=== PATIENT | male | born 1965 | race Caucasian/White ===

== ENCOUNTER 2016-09-08 22:27 | Emergency (ER) | payer OTHER ==
[~2016-09-08] VITALS: Ht 177.8 cm; Wt 102.2 kg
[~2016-09-08 22:27] MED LIST: CETI10CA PO; EPP3/2 IM; IBUP-103 PO; LAMO100T16 PO; MULT1CAP17 PO
[2016-09-08 22:48] VITALS: Ht 177.8 cm; Wt 102.2 kg
[2016-09-08] MEDS ORDERED: DIAZEPAM 5MG TAB PO STA (23:14)
--- NOTE | 2016-09-08 23:25 | EMERGENCY ROOM VISIT NOTE ---
History Report prepared by Munira: Nicola Calabrese Under the Supervision of: Dr. Mathieu Patel M.D. First contact with patient: 23:06 Chief Complaint: PAIN (GENERALIZED) Stated Complaint: HAD SURGERY YESTERDAY,ABDOMINAL/MUSCLE PAIN,SPASMS History of Present Illness The patient is a 51 year old male who presents to the Emergency Room with complaints of worsening generalized pain that started yesterday evening. He rates his pain an 8/10 in severity. This pain became increasingly worse around 30 minutes [employer], after stepping outside in the cold. The patient has a history of a rectal neuroendocrine tumor. He underwent surgical resection of tumor margins by Dr. Juarez ([place]) yesterday. The patient states that he is experiencing abdominal pain, leg pain, chest pain, muscle spasms, general body aches, difficulty urinating, decreased bowel movements, and a cough at this time. The patient describes his abdominal pain as feeling as though he just " did a thousand sit ups." This pain is worse with movement. The patient believes that the symptoms he is experiencing are caused by the anesthesia he was under yesterday. The patient notes that he experienced similar body aches and general pain similar to this in the past, but never to this extent. He took 650 mg Tylenol [employer] in the ED. The patient denies shortness of breath. Source of History: patient, spouse/significant other Onset: Yesterday evening Position: other (Global ) Symptom Intensity: 8/10 Timing: worsening Modifying Factors (Worsening): movement Associated Symptoms: + abdominal pain, + chest pain, + cough, + urinary symptoms, No SOB Review of Systems All systems have been listed, reviewed, and are negative other than those previously mentioned. Please see Additional Medical History Sheet. Past Medical & Surgical Surgical Problems: (1) Rectal tumor Family History No significant family history Social History Smoking Status: Never Smoker Smokeless Tobacco Use: No Alcohol Use: occasionally Drug Use: none Marital Status: Housing Status: lives with significant other Occupation Status: employed Current/Historical Medications Scheduled Epinephrine (Epipen), 0.3 MG IM UD Lamotrigine (Lamictal), 200 MG PO AMPM Scheduled PRN Acetaminophen Tab (Tylenol), 650 MG PO Q6H PRN for Pain Cetirizine Hcl (Zyrtec Allergy), 10 MG PO DAILY PRN Diazepam (Valium), 1 TAB PO Q6 PRN for muscle spasms Ibuprofen Tab (Advil), 400-600 MG PO Q6 PRN Allergies Coded Allergies: Molds and Smuts (Verified Allergy, Unknown, SHORTNESS OF BREATH, 09/06/13) SHELLFISH (Verified Allergy, Unknown, ANAPHYLAXIS, 09/06/13) Physical Exam Vital Signs Date Time Temp Pulse Resp B/P Pulse Ox O2 Delivery O2 Flow Rate FiO2 09/09/16 00:51 36.9 78 19 145/89 98 09/08/16 22:48 36.9 92 19 169/109 96 Room Air Physical Exam GENERAL: Patient awake, alert, oriented x 3. Uncomfortable appearing. Patient follows commands. Patient does not appear toxic. Patient is adequately hydrated and well-nourished. SKIN: No erythema, pallor, cyanosis or rash HEENT: Normal head, pupils equal, reactive to light and accommodation. Ears normal. Oral cavity and posterior pharynx appear normal. Neck: Without adenopathy, no neck vein distention. LUNGS: Pain with deep respiration noted. Clear to auscultation. No wheezes, no rales, no rhonchi. HEART: No murmurs. No gallops. No rubs ABDOMEN: Soft, vague upper abdominal tenderness without rebound or guarding. EXTREMITIES: No signs of trauma. No pedal or pretibial edema. No calf or thigh tenderness. RECTAL: No signs of recent surgery or infection. NEUROLOGIC: Cranial nerves II-XII within normal limits. No gross motor sensory function deficits. Medical Decision & Procedures ER Provider Diagnostic Interpretation: Chest x ray per my interpretation, pending radiologist review: No acute infiltrate seen. Laboratory Results 09/08/16 22:25 Red Blood Count 4.98, Mean Corpuscular Volume 83.9, Mean Corpuscular Hemoglobin 29.9, Mean Corpuscular Hemoglobin Concent 35.6, Mean Platelet Volume 10.0, Neutrophils (%) (Auto) 77.2, Lymphocytes (%) (Auto) 12.7, Monocytes (%) (Auto) 8.7, Eosinophils (%) (Auto) 0.9, Basophils (%) (Auto) 0.2, Neutrophils # (Auto) 9.25, Lymphocytes # (Auto) 1.52, Monocytes # (Auto) 1.04, Eosinophils # (Auto) 0.11, Basophils # (Auto) 0.02 09/08/16 22:25 Test 09/08/16 22:20 09/08/16 22:25 Urine Color YELLOW Urine Appearance CLEAR (CLEAR) Urine pH 5.5 (4.5-7.5) Urine Specific [place] 1.018 (1.000-1.030) Urine Protein NEG (NEG) Urine Glucose (UA) NEG (NEG) Urine Ketones NEG (NEG) Urine Occult Blood NEG (NEG) Urine Nitrite NEG (NEG) Urine Bilirubin NEG (NEG) Urine Urobilinogen NEG (NEG) Urine Leukocyte Esterase NEG (NEG) White Blood Count 11.97 K/uL (4.8-10.8) Red Blood Count 4.98 M/uL (4.7-6.1) Hemoglobin 14.9 g/dL (14.0-18.0) Hematocrit 41.8 % (42-52) Mean Corpuscular Volume 83.9 fL (80-100) Mean Corpuscular Hemoglobin 29.9 pg (25-34) Mean Corpuscular Hemoglobin Concent 35.6 g/dl (32-36) Platelet Count 209 K/uL (130-400) Mean Platelet Volume 10.0 fL (7.4-10.4) Neutrophils (%) (Auto) 77.2 % Lymphocytes (%) (Auto) 12.7 % Monocytes (%) (Auto) 8.7 % Eosinophils (%) (Auto) 0.9 % Basophils (%) (Auto) 0.2 % Neutrophils # (Auto) 9.25 K/uL (1.4-6.5) Lymphocytes # (Auto) 1.52 K/uL (1.2-3.4) Monocytes # (Auto) 1.04 K/uL (0.11-0.59) Eosinophils # (Auto) 0.11 K/uL (0-0.5) Basophils # (Auto) 0.02 K/uL (0-0.2) RDW Standard Deviation 37.5 fL (36.4-46.3) RDW Coefficient of Variation 12.3 % (11.5-14.5) Immature Granulocyte % (Auto) 0.3 % Immature Granulocyte # (Auto) 0.03 K/uL (0.00-0.02) Anion Gap 7.0 mmol/L (3-11) Est Creatinine Clear Calc Drug Dose 127.9 ml/min Estimated GFR () 118.2 Estimated GFR (Non- 102.0 BUN/Creatinine Ratio 18.8 (10-20) Calcium Level 8.4 mg/dl (8.5-10.1) Troponin I < 0.015 ng/ml (0-0.045) Laboratory results as stated above per my review. Medications Administered Medications (Trade) Dose Ordered Sig/Apollo Route Start Time Stop Time Status Last Admin Dose Admin Diazepam (Valium Tab) 10 mg NOW STAT PO 09/08/16 23:14 09/08/16 23:18 DC 09/08/16 23:26 10 MG ECG Indication: abdominal pain Rate (beats per minute): 81 Rhythm: sinus rhythm Findings: no acute ischemic change, no ectopy ED Course 2306: Past medical records reviewed. The patient was evaluated in room B10. A complete history and physical examination was performed. 4: Ordered Valium Tablet 10 mg PO. 0048: Upon reevaluation, the patient appeared to have improvement of his symptoms. I discussed today's findings with the patient. He verbalized agreement of the treatment plan. He was discharged home. Medical Decision Nurses notes reviewed. Medical history sheet reviewed. Differential diagnosis includes but is not limited to: post operative pain, muscle spasm, infection, metabolic disorder, carcinoid syndrome, atelectasis. The patient had a neuroendocrine tumor removed from his rectal area within the past 48 hours. The patient has a prior history of muscle spasms. Today the spasms were much worse. He also complained of feeling very cold. He did not have fever. Multiple labs were obtained. The patient's white count is slightly elevated. Clinically the patient does not appear toxic. These symptoms may be related to a variant of carcinoid syndrome or may be related to his recent surgery and anesthesia. The patient did improve markedly with 10 mg of oral Valium. He'll continue that medication at home as needed. Impression Primary Impression: Muscle spasm Additional Impressions: History of rectal surgery Neuroendocrine carcinoma Scribe Attestation The scribe's documentation has been prepared under my direction and personally reviewed by me in its entirety. I confirm that the note above accurately reflects all work, treatment, procedures, and medical decision making performed by me. Departure Information Dispostion Home / Self-Care Prescriptions Diazepam (VALIUM) 10 Mg Tab 1 TAB PO Q6 Y for muscle spasms, #6 TAB Prov: Mathieu Patel M.D. 09/09/16 Referrals Mei Morse MD (PCP) Forms HOME CARE DOCUMENTATION FORM, IMPORTANT VISIT INFORMATION, WORK / SCHOOL INSTRUCTIONS Patient Instructions My [facility] Additional Instructions 10 mg of Valium every 6 hours as needed for severe muscle spasms. Do not drive or operate machinery while taking Valium. Drink extra fluids. Take all of your current medications as prescribed. Return here or to your family physician in 48 hours if symptoms have not subsided. Problem Qualifiers
[2016-09-09 00:06] LABS: BASO % 0.2 %; BASO ABS # 0.02 K/uL (0-0.2); COMPLETE YES; EOS % 0.9 %; HEMATOCRIT 41.8 % (42-52); IG% 0.3 %; LYMPH % 12.7 %; LYMPH ABS # 1.52 K/uL (1.2-3.4); MEAN CELL VOLUME 83.9 fL (80-100); MEAN CORPUSCULAR HEMOGLOBIN 29.9 pg (25-34); MEAN CORPUSCULAR HGB CONC 35.6 g/dl (32-36); MONO % 8.7 %; NEUT % 77.2 %; PLATELET COUNT 209 K/uL (130-400); RED BLOOD COUNT 4.98 M/uL (4.7-6.1); WHITE BLOOD COUNT 11.97 K/uL (4.8-10.8)
[2016-09-09 00:11] LABS: BLOOD UREA NITROGEN 15 mg/dl (7-18); BUN/CREATININE RATIO 18.8 (10-20); CALCIUM 8.4 mg/dl (8.5-10.1); CARBON DIOXIDE 29 mmol/L (21-32); CHLORIDE 108 mmol/L (98-107); GLUCOSE 106 mg/dl (70-99); POTASSIUM 3.5 mmol/L (3.5-5.1); SODIUM 144 mmol/L (136-145)
[2016-09-09 00:13] LABS: URINE APPEARANCE CLEAR (CLEAR); URINE BILIRUBIN NEG (NEG); URINE COLOR YELLOW; URINE NITRITE NEG (NEG); URINE PH 5.5 (4.5-7.5); URINE SPECIFIC GRAVITY 1.018 (1.000-1.030); UROBILINOGEN NEG (NEG); ZZUR CULT IF INDIC CLEAN CATCH NO
[2016-09-09 00:15] LABS: MANUAL MICROSCOPIC REQUIRED? NO; REVIEW REQ? NO
[2016-09-09] MEDS ORDERED: LAMO200T38 PO (00:32)
[2016-09-09] MEDS ORDERED: ACET325T96 PO (00:35)
[2016-09-09] MEDS ORDERED: DIAZ10TA3 PO (00:45)
[2016-09-09 00:51] VITALS: BP 145/89; PULSE 78; TEMP 36.9; O2SAT 98
--- NOTE | 2016-09-09 07:30 | DIAGNOSTIC IMAGING REPORT ---
TWO VIEW CHEST CLINICAL HISTORY: Atypical chest pain. FINDINGS: PA and lateral chest radiographs are obtained. No prior studies are available for comparison at the time of dictation. The cardiomediastinal silhouette is unremarkable. The lungs and pleural spaces are clear. There is no pneumothorax. The bony thorax appears intact. IMPRESSION: No active disease in the chest. Electronically signed by: Velasquez Delgadillo M.D. 09/09/2016 7:29 AM Dictated Date/Time: 09/09/2016 7:29 AM
== END 2016-09-09 00:54 | disposition home or self-care (01) ==
LOC: C.EDB 22:29
DX: M62.838 Other muscle spasm (principal); Z98.890 Other specified postprocedural states; C7A.026 Malignant carcinoid tumor of the rectum

== ENCOUNTER 2017-08-13 12:02 | Emergency (ER) | payer OTHER ==
[~2017-08-13] VITALS: Ht 177.8 cm; Wt 102.6 kg
[~2017-08-13 12:02] MED LIST changes: +ACET-1693 PO; -LAMO100T16 PO; +LAMO200T35 PO; -MULT1CAP17 PO
[2017-08-13 12:06] VITALS: TEMP 36.3; Ht 177.8 cm; Wt 102.6 kg
[2017-08-13] MEDS ORDERED: HYDCR1CL TOP (12:29)
[2017-08-13] MEDS ORDERED: RABIES IMMUNE GLOBULIN (HUMAN) 150 INTER.UNIT/ML 2 ML VIAL IM. ONE (12:30)
[2017-08-13] MEDS ORDERED: RABIES VACCINE (IMOVAX) HUMAN DIPL CELL 2.5 INTER.UNIT/ML SYR IM. ONE (12:30)
--- NOTE | 2017-08-13 12:52 | EMERGENCY ROOM VISIT NOTE ---
History First contact with patient: 12:11 Chief Complaint: RABIES VACCINE Stated Complaint: BAT EXPOSURE History of Present Illness The patient is a 52 year old male who presents to the Emergency Room via private vehicle with complaints of "bad exposure". The patient states that there were 2 episodes where there was a bat in the house. The first was in the basement area and the second was in the kitchen area. They note that this was on 2 separate occasions and could be the same bat or numerous bats. They are having forming machine adjuster come to investigate. They note that because of the risk that they may have been exposed to a bat and not been aware they would rather potentially pursue the rabies prophylaxis. He denies any known bites. He is not immune compromise. Review of Systems A complete 6-point Review of Systems was discussed with the patient, with pertinent positives and negatives listed in the History of Present Illness. All remaining Review of Systems questions can be considered negative unless otherwise specified. Past Medical/Surgical History Surgical Problems: (1) Rectal tumor Family History No significant family history Social History Smoking Status: Never Smoker Alcohol Use: occasionally Drug Use: none Marital Status: Housing Status: lives with significant other Occupation Status: employed Current/Historical Medications Scheduled Epinephrine (Epipen), 0.3 MG IM UD Hydrocortisone 1% (Hydrocortisone 1%), 1 APPLN TOP UD Lamotrigine (Lamictal), 200 MG PO AMPM Scheduled PRN Acetaminophen Tab (Tylenol), 650 MG PO Q6H PRN for Pain Ibuprofen Tab (Advil), 400-600 MG PO Q6 PRN Allergies Coded Allergies: Flu Virus Vaccine (Unverified Allergy, Severe, ANAPHYLAXIS, 08/13/17) Molds and Smuts (Verified Allergy, Unknown, SHORTNESS OF BREATH, 09/06/13) Shellfish (Verified Allergy, Unknown, ANAPHYLAXIS, 09/06/13) Physical Exam Vital Signs Date Time Temp Pulse Resp B/P (MAP) Pulse Ox O2 Delivery O2 Flow Rate FiO2 08/13/17 14:21 56 16 134/90 97 Room Air 08/13/17 12:06 36.3 67 18 125/83 97 Room Air Physical Exam VITAL SIGNS - Vital signs and nursing notes were reviewed. Stable. GENERAL - 52-year-old male appearing his stated age who is in no acute distress. Communicates well with provider and answers questions appropriately. SKIN - Without rashes. Stable. HEAD - NC/AT. EYES - Sclera anicteric. EARS - No deformities of external structures noted on gross examination bilaterally. LUNGS - Chest wall symmetric without accessory muscle use, intercostals retractions, or central cyanosis. Normal vesicular breath sounds CTA B/L. No wheezes, rales, or rhonchi appreciated. CARDIAC - RRR with S1/S2. No murmur, rubs, or gallops appreciated. Medical Decision & Procedures Medications Administered Medications (Trade) Dose Ordered Sig/Apollo Route Start Time Stop Time Status Last Admin Dose Admin Rabies Vaccine Human Diploid Cell (Imovax Rabies) 2.5 interunit ONCE ONCE IM. 08/13/17 12:30 08/13/17 12:31 DC 08/13/17 13:32 2.5 INTERUNIT Rabies Immune Globulin (Imogam Rabies Inj) 2,052 interunit ONCE ONCE IM. 08/13/17 12:30 08/13/17 12:31 DC 08/13/17 13:36 2,052 INTERUNIT Medical Decision Patient was seen and evaluated as above in room D3. Review was performed of nursing notes and vital signs. After obtaining a thorough history and physical examination benefit versus risk of initiating the rabies immunization series was discussed. After discussing benefit versus risk in detail, these were provided. This was both Imovax and the immunoglobulin. He was observed for greater than 20 minutes without reaction. He was educated upon worrisome symptoms which to return. They will have the house evaluated by an forming machine adjuster. The patient was educated upon management, had questions answered prior to discharge, and was discharged home in good condition. Impression Primary Impression: Exposure to bat without known bite Additional Impression: Encounter for prophylactic rabies immune globin Departure Information Dispostion Home / Self-Care Condition GOOD Referrals Mei Morse MD (PCP) Patient Instructions My [facility] Additional Instructions You were seen in the emergency department for the rabies vaccination series. Today's considered a 0. Please return on days 3, 7 and 14. (, and 27 of August) for subsequent injections. Please be sure to return on these days for this injection. It is very important that you come back on these specific days. Please watch for signs of infection to include redness, swelling or drainage. Please watch for signs of reaction to this to include fever, chills, hives, trouble breathing. If these occur Thank you for your time, and please return with any new/concerning symptoms. Problem Qualifiers
[2017-08-13 14:21] VITALS: BP 134/90; PULSE 56; O2SAT 97
== END 2017-08-13 14:15 | disposition home or self-care (01) ==
LOC: C.EDB 12:04 → C.EDD 14:15
DX: Z20.3 Contact with and (suspected) exposure to rabies (principal); Z23 Encounter for immunization

== ENCOUNTER 2017-08-16 15:43 | Emergency (ER) | payer OTHER ==
[~2017-08-16] VITALS: Ht 177.8 cm; Wt 103.1 kg
[~2017-08-16 15:43] MED LIST changes: -CETI10CA PO; +HYDCR1CL TOP
[2017-08-16 15:55] VITALS: Ht 177.8 cm; Wt 103.1 kg
[2017-08-16] MEDS ORDERED: RABIES VACCINE (IMOVAX) HUMAN DIPL CELL 2.5 INTER.UNIT/ML SYR IM. ONE (16:15)
--- NOTE | 2017-08-16 16:22 | EMERGENCY ROOM VISIT NOTE ---
History First contact with patient: 15:57 Chief Complaint: RABIES VACCINE REPEAT VISIT Stated Complaint: RABIES 2ND VACCINE History of Present Illness The patient is a 52 year old male who presents to the Emergency Room for his second Imovax injection. The patient and family were here 3 days ago after being exposed to a bat flying around in his home. The patient denies any adverse reactions to his prior injections. Review of Systems 6 system review was performed and was negative except for pertinent positives and negatives as indicated in history of present illness Past Medical/Surgical History Surgical Problems: (1) Rectal tumor Family History No significant family history Social History Smoking Status: Never Smoker Alcohol Use: occasionally Drug Use: none Marital Status: Housing Status: lives with significant other Occupation Status: employed Current/Historical Medications Scheduled Epinephrine (Epipen), 0.3 MG IM UD Hydrocortisone 1% (Hydrocortisone 1%), 1 APPLN TOP UD Lamotrigine (Lamictal), 200 MG PO AMPM Scheduled PRN Acetaminophen Tab (Tylenol), 650 MG PO Q6H PRN for Pain Ibuprofen Tab (Advil), 400-600 MG PO Q6 PRN Physical Exam Vital Signs Date Time Temp Pulse Resp B/P (MAP) Pulse Ox O2 Delivery O2 Flow Rate FiO2 08/16/17 15:55 36.7 79 18 117/80 95 Room Air Physical Exam CONSTITUTIONAL: Healthy and well nourished. Alert and oriented X 3 with positive affect. HEENT: No scleral icterus or conjunctival injection. NECK: Full active range of motion without discomfort. MUSCULOSKELETAL: Full range of motion of all joints without discomfort. INTEGUMENTARY: No rash or other significant dermatologic conditions noted. NEUROLOGIC: No focal neurologic deficits noted. Medical Decision & Procedures ED Course Patient history and physical exam were performed. Nurse's notes were reviewed. Vital signs were reviewed and were normal. The patient was administered Imovax without adverse reaction. The patient will return on day 7 for the next Imovax injection, sooner with any reactions to the medication. Medical Decision Medication Reconcilliation Current Medication List: was personally reviewed by me Blood Pressure Screening Patient's blood pressure: Normal blood pressure Impression Primary Impression: Rabies, need for prophylactic vaccination against Departure Information Dispostion Home / Self-Care Forms HOME CARE DOCUMENTATION FORM, IMPORTANT VISIT INFORMATION Patient Instructions My [facility] Additional Instructions Return on 08/20/17 for your next immunization
[2017-08-16 16:54] VITALS: BP 117/80; PULSE 79; TEMP 36.7; O2SAT 95
== END 2017-08-16 16:55 | disposition home or self-care (01) ==
LOC: C.EDB 15:43 → C.EDD 16:55
DX: Z23 Encounter for immunization (principal); Z20.3 Contact with and (suspected) exposure to rabies

== ENCOUNTER 2017-08-20 10:52 | Emergency (ER) | payer OTHER ==
[~2017-08-20] VITALS: Ht 177.8 cm; Wt 102.0 kg
[2017-08-20 11:00] VITALS: BP 123/79; PULSE 66; TEMP 36.8; O2SAT 96; Ht 177.8 cm; Wt 102.0 kg
[2017-08-20] MEDS ORDERED: RABIES VACCINE (IMOVAX) HUMAN DIPL CELL 2.5 INTER.UNIT/ML SYR IM. ONE (11:30)
--- NOTE | 2017-08-20 21:36 | EMERGENCY ROOM VISIT NOTE ---
History First contact with patient: 11:11 Chief Complaint: RABIES VACCINE REPEAT VISIT Stated Complaint: 3RD RABIES VACCINE History of Present Illness The patient is a 52 year old male who presents to the Emergency Room for a third Imovax immunization. The patient denies any adverse reactions to the injection. Review of Systems Noncontributory and unchanged from previous visits Past Medical/Surgical History Surgical Problems: (1) Rectal tumor Family History No significant family history Social History Smoking Status: Never Smoker Alcohol Use: occasionally Drug Use: none Marital Status: Housing Status: lives with significant other Occupation Status: employed Current/Historical Medications Scheduled Epinephrine (Epipen), 0.3 MG IM UD Hydrocortisone 1% (Hydrocortisone 1%), 1 APPLN TOP UD Lamotrigine (Lamictal), 200 MG PO AMPM Scheduled PRN Acetaminophen Tab (Tylenol), 650 MG PO Q6H PRN for Pain Ibuprofen Tab (Advil), 400-600 MG PO Q6 PRN Physical Exam Vital Signs Date Time Temp Pulse Resp B/P (MAP) Pulse Ox O2 Delivery O2 Flow Rate FiO2 08/20/17 11:00 36.8 66 18 123/79 96 Room Air Physical Exam CONSTITUTIONAL: Healthy and well nourished. HEENT: No scleral icterus or conjunctival injection. INTEGUMENTARY: No rash or other significant dermatologic conditions noted. NEUROLOGIC: No focal neurologic deficits noted. Medical Decision & Procedures Medications Administered Medications (Trade) Dose Ordered Sig/Aplolo Route Start Time Stop Time Status Last Admin Dose Admin Rabies Vaccine Human Diploid Cell (Imovax Rabies) 2.5 interunit ONCE ONCE IM. 08/20/17 11:30 08/20/17 11:31 DC 08/20/17 11:34 2.5 INTERUNIT ED Course Patient history and physical exam were performed. Nurse's notes were reviewed. Vital signs were reviewed and were normal. The patient was administered Imovax IM without adverse reaction. The patient will return in 1 week for a final Imovax injection, returning sooner with any adverse reaction to today's injection. The patient denied any pain at the time of discharge. Medical Decision Blood Pressure Screening Patient's blood pressure: Normal blood pressure Impression Primary Impression: Rabies, need for prophylactic vaccination against Departure Information Dispostion Home / Self-Care Condition GOOD Forms HOME CARE DOCUMENTATION FORM, IMPORTANT VISIT INFORMATION Patient Instructions Replaced By [facility] Additional Instructions Return next Monday for your final Imovax injection
== END 2017-08-20 11:47 | disposition home or self-care (01) ==
LOC: C.EDB 10:53 → C.EDD 11:47
DX: Z23 Encounter for immunization (principal); Z20.3 Contact with and (suspected) exposure to rabies

== ENCOUNTER 2017-08-27 12:20 | Emergency (ER) | payer OTHER ==
[~2017-08-27] VITALS: Ht 177.8 cm; Wt 102.5 kg
[2017-08-27 12:27] VITALS: BP 128/78; PULSE 70; TEMP 36.9; O2SAT 97; Ht 177.8 cm; Wt 102.5 kg
--- NOTE | 2017-08-27 12:44 | EMERGENCY ROOM VISIT NOTE ---
ED Visit Note First contact with patient: 12:33 CHIEF COMPLAINT: His last rabies vaccine HPI: This 52-year-old male presents to ER for his last rabies vaccine. The patient was initially evaluated here 14 days ago when they found a bat in their house and was there while they were sleeping. The patient has tolerated prior vaccines without any difficulty. REVIEW OF SYSTEMS: 3 system review was performed and was negative unless stated otherwise in history of present illness. PMH: The patient is healthy; rectal tumor SOCIAL HISTORY: Patient lives with family. Denies tobacco use but admits to occasional alcohol use PHYSICAL EXAM: Vital Signs: Were reviewed reviewed Nurse's notes. GENERAL: 13- year-old white female appears in no acute distress. MENTAL Status: Alert and oriented 3. EMERGENCY DEPARTMENT COURSE: The patient was given Imovax . The patient was discharged home in stable condition. DIAGNOSIS: Post exposure rabies prophylaxis DISCHARGE INSTRUCTIONS no further vaccine necessary. Problem List Surgical Problems: (1) Rectal tumor Status: Resolved Current/Historical Medications Scheduled Epinephrine (Epipen), 0.3 MG IM UD Hydrocortisone 1% (Hydrocortisone 1%), 1 APPLN TOP UD Lamotrigine (Lamictal), 200 MG PO AMPM Scheduled PRN Acetaminophen Tab (Tylenol), 650 MG PO Q6H PRN for Pain Ibuprofen Tab (Advil), 400-600 MG PO Q6 PRN Allergies Coded Allergies: Flu Virus Vaccine (Unverified Allergy, Severe, ANAPHYLAXIS, 08/27/17) Molds and Smuts (Verified Allergy, Unknown, SHORTNESS OF BREATH, 08/27/17) Shellfish (Verified Allergy, Unknown, ANAPHYLAXIS, 08/27/17) Vital Signs Date Time Temp Pulse Resp B/P (MAP) Pulse Ox O2 Delivery O2 Flow Rate FiO2 08/27/17 12:27 36.9 70 18 128/78 97 Room Air Departure Information Referrals Mei Morse MD (PCP) Patient Instructions [facility]
[2017-08-27] MEDS ORDERED: RABIES VACCINE (IMOVAX) HUMAN DIPL CELL 2.5 INTER.UNIT/ML SYR IM. ONE (12:45)
== END 2017-08-27 13:16 | disposition home or self-care (01) ==
LOC: C.EDB 12:21 → C.EDD 13:16
DX: Z23 Encounter for immunization (principal); Z20.3 Contact with and (suspected) exposure to rabies; Z79.899 Other long term (current) drug therapy; Z88.7 Allergy status to serum and vaccine; Z91.013 Allergy to seafood; Z91.048 Other nonmedicinal substance allergy status